=== PATIENT | female | born 1960 | race Two or more races ===

== ENCOUNTER 2020-05-03 18:31 | Outpatient (REF) | payer OTHER, SELFPAY | END 2020-05-03 18:32 | disposition home or self-care (01) | LOC: HO.LNP 18:31 | PROVIDERS: Visit Provider Family Medicine | DX: Z20.828 Contact with and (suspected) exposure to other viral communicable diseases (principal) | CPT/HCPCS: 87635 ==

== ENCOUNTER 2025-02-06 09:08 | Outpatient (AMB) | payer MEDICARE, SELFPAY ==
--- NOTE | 2025-02-06 09:12 | A.OFFVIS_ITS ---
Vital Signs 02/06/25 09:16 Height 5 ft 1.54 in Weight 114 lb 10.246 oz BMI 21.3 BP 132/70 Blood Pressure Location Rt brachial Position Sitting Pulse 83 Pulse Source Pulse Oximeter Pulse Oximetry (%) 97 Oxygen Delivery Method Room Air Intake Visit Reasons: Osteoporosis Intake Note: New patient present today for Osteoporosis. Patient reports she believes she has had 3 total Prolia injections, last injection was approx in September 2024. Patient report she is taking 600 mg of Mushroom Supplement. Energy Professional Required: No Accompanied by: Self / Same As Patient Allergies Iodinated Contrast Media Allergy (Severe, Verified 02/06/25 09:16) Patient had bad rash Medication List - Last Reviewed 02/06/25 by SAUMYA Mitchell calcium carb, citrate-vit D3 600 mg-12.5 mcg (500 unit) ER (Citracal-D3 Slow Release) tabs PO cinnamon bark (Cinnamon) 1,000 mg PO DAILY multivitamin 1 tab PO DAILY HPI Comments Details: The patient is a 64-year-old female presenting with osteoporosis management. She was first diagnosed with osteoporosis eight years ago by her NUTRITIONAL SERVICES DIRECTOR, Dr. Price, and has not seen a specialist for this condition until now. Initially, she was treated with alendronate for four years, starting around 2011, and later transitioned to Prolia, receiving five doses from 2020 to 2024. The patient reports no side effects from Prolia and has not experienced any fractures or jaw problems. She has a family history of osteoporosis and hip fracture, as her father had similar issues. The patient consumes a diet rich in calcium, including salmon, milk, broccoli, and cheese, and takes calcium supplements totaling 2400 mg daily. She was advised to reduce her calcium intake to 1200 mg daily to prevent potential hypercalcemia and associated risks. The patient engages in weight-bearing exercises, performing strengthening exercises for 20 minutes daily, six times a week. She does not use proton pump inhibitors, blood thinners, seizure medications, or steroids. First diagnosed in 8 yrs ago . Never saw endo or rheum Received treatment in the past with alendronate , from 2016 to 2020 .and Prolia from 2020 to 2024 last dose in 09/2024 Tolerated treatment well without complication. No history of pathologic fracture or ONJ. Has several servings of dietary calcium per day in the form of salmon , milk, broccoli . Takes Calcium supplement 2400 mg daily in divided doses. Not Takes IU of Vitamin D daily. Denies ever using PPI, anticoagulant, antiepileptic or glucocorticoid medica tion. Does weight bearing exercise 7 days per week in the form of muscle straining . 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 UTD on dental cleanings and sees dentist every 6 months. No planned upcoming dental work or extractions. Ex tabacco user stopped 1984 - no heavy ETOH abuse DXA dated 10/24/24: T-score of -2.7 in the lumbar spine Labs: [facility] Medical History (Updated 02/06/25 @ 09:26 by Ammon Locke MD) Osteoporosis Surgical History Hx of hysterectomy Hx of tonsillectomy Hx of tooth extraction History of bilateral tubal ligation Hx of appendectomy Family History Mother History of colon cancer Father Osteoporosis Social History Alcohol intake: current Alcohol intake frequency: holidays/special occasions only Patient Tobacco Use Status: Former Tobacco user Physical Exam Vital Signs: Last Vital Signs Pulse 83 02/06/25 09:16 BP 132/70 02/06/25 09:16 Pulse Ox 97 02/06/25 09:16 Oxygen Delivery Method Room Air 02/06/25 09:16 BMI result Body Mass Index 21.3 There are no Cushingoid features. Absence of blue sclera. Absence of kyphosis. Thyroid gland is of nl size and weighs 15 gms. There are no thyroid nodules palpated. Lungs CTA. Heart S1 S2 Reg R/R Abdominal exam benign. Muscle strength 5/5 . Examination of spine reveals absence of tenderness on palpation Assessment & Plan Assessment & Plan (1) Osteoporosis: Code(s): M81.0 - Age-related osteoporosis without current pathological fracture Category: Medical Plan: This is a 64-year-old white female with a history of osteoporosis previously treated with alendronate and now Prolia 5 doses last dose September 2024 with significant increases in DEXA bone density. Secondary workup was negative Plan is to continue calcium, vitamin-D and Prolia injections. Could consider transitioning from Prolia in about 2 years time back to bisphosphonate 1. Osteoporosis The patient has been managing osteoporosis with Prolia, having received five doses from 2020 to 2024. She has not experienced any fractures or jaw problems. The plan includes continuing Prolia with a potential transition to alendronate or Reclast to prevent the rebound effect. A 24-hour urine calcium collection is recommended to assess calcium excretion and adjust supplementation accordingly. The patient had an opportunity to ask questions regarding treatment plan. The patient expressed understanding and agreement with the above treatment plan. Patient was informed and verbally consented to the use of an ambient scribe for clinic note documentation during this visit. Orders: Orders Calcium, 24 Hr Ur Today M81.0 - Age-related osteoporosis without current pathological fracture Creatinine, 24 Hr Group Today M81.0 - Age-related osteoporosis without current pathological fracture Coding Level of Care Code New Pt Level 4 (14294) Diagnoses Osteoporosis M81.0
[2025-02-06 09:16] VITALS: BP 132/70; PULSE 83; O2SAT 97; BMI 21.3
== END 2025-02-06 10:29 | disposition home or self-care (01) ==
LOC: HO.ENCR 09:10
PROVIDERS: PCP Internal Medicine; Visit Provider Internal Medicine Endocrinology, Diabetes & Metabolism
DX: M81.0 Age-related osteoporosis without current pathological fracture (principal)
CPT/HCPCS: 99204

== ENCOUNTER → 2025-02-06 09:08 | Outpatient (BNVA) | payer MEDICARE, SELFPAY | PROVIDERS: PCP Internal Medicine; Visit Provider Internal Medicine Endocrinology, Diabetes & Metabolism | DX: M81.0 Age-related osteoporosis without current pathological fracture (principal); Z79.899 Other long term (current) drug therapy | CPT/HCPCS: 99202 ==

== ENCOUNTER 2025-02-09 15:29 | Outpatient (REF) | payer MEDICARE, SELFPAY ==
[2025-02-09 16:54] LABS: Creatinine, mg/dL 99.61
[2025-02-09 17:23] LABS: Total Volume 24 Hour Urine 825 mL
[2025-02-15 18:18] LABS: Calcium/Creatinine Ratio 283 mg/g creat (30-275)
== END 2025-02-09 15:30 | disposition home or self-care (01) ==
LOC: HO.LNP 15:29
PROVIDERS: Visit Provider Internal Medicine Endocrinology, Diabetes & Metabolism
DX: M81.0 Age-related osteoporosis without current pathological fracture (principal)
CPT/HCPCS: 82340; 82570

== ENCOUNTER 2025-04-03 13:38 | Outpatient (REF) | payer MEDICARE, SELFPAY ==
[2025-04-03 18:08] LABS: Albumin Level 4.4 g/dL (3.5-5.0); Anion Gap 11 (12-20); Blood Urea Nitrogen 17 mg/dL (9-16); Calcium 9.6 mg/dL (8.4-10.2); Carbon Dioxide 27 mmol/L (22-29); Chloride 105 mmol/L (96-108); Estimated Glomerular Filt Rate > 60; Potassium 3.9 mmol/L (3.3-5.1); Sodium 139 mmol/L (135-145)
== END 2025-04-03 13:39 | disposition home or self-care (01) ==
LOC: HO.WFDLDS 13:38
PROVIDERS: Visit Provider Internal Medicine Endocrinology, Diabetes & Metabolism
DX: M81.0 Age-related osteoporosis without current pathological fracture (principal)
CPT/HCPCS: 36415; 80048; 82040

== ENCOUNTER 2025-04-11 09:03 | Outpatient (AMB) | payer MEDICARE, SELFPAY ==
[2025-04-11 09:12] VITALS: BP 96/64; PULSE 63; O2SAT 98; BMI 21.7
--- NOTE | 2025-04-11 09:12 | A.OFFVIS_ITS ---
Vital Signs 04/11/25 09:12 Height 5 ft 1.3 in Weight 116 lb 2.938 oz BMI 21.7 BP 96/64 Blood Pressure Location Rt brachial Position Sitting Pulse 63 Pulse Source Pulse Oximeter Pulse Oximetry (%) 98 Oxygen Delivery Method Room Air Intake Visit Reasons: osteoporosis/Prolia injection Intake Note: Patient present today for Osteoporosis follow up and Prolia injection. 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 She was first diagnosed with osteoporosis eight years ago by her AUTOMATION CONTROL TECHNICIAN, Dr. Price, and has not seen a specialist for this condition until now. Initially, she was treated with alendronate for four years, starting around 2011, and later transitioned to Prolia, receiving five doses from 2020 to 2024. The patient reports no side effects from Prolia and has not experienced any fractures or jaw problems. She has a family history of osteoporosis and hip fracture, as her father had similar issues. The patient consumes a diet rich in calcium, including salmon, milk, broccoli, and cheese, and takes calcium supplements totaling 2400 mg daily. She was advised to reduce her calcium intake to 1200 mg daily to prevent potential hypercalcemia and associated risks. The patient engages in weight-bearing exercises, performing strengthening exercises for 20 minutes daily, six times a week. She does not use proton pump inhibitors, blood thinners, seizure medications, or steroids. First diagnosed in 8 yrs ago . Never saw endo or rheum Received treatment in the past with alendronate , from 2016 to 2020 .and Prolia from 2020 to 2024 last dose in 09/2024 Tolerated treatment well without complication. No history of pathologic fracture or ONJ. Has several servings of dietary calcium per day in the form of salmon , milk, broccoli . Takes Calcium supplement 2400 mg daily in divided doses. Not Takes IU of Vitamin D daily. Denies ever using PPI, anticoagulant, antiepileptic or glucocorticoid medication. Does weight bearing exercise 7 days per week in the form of muscle straining . 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 UTD on dental cleanings and sees dentist every 6 months. No planned upcoming dental work or extractions. Ex tabacco user stopped 1984 - no heavy ETOH abuse DXA dated 10/24/24: T-score of -2.7 in the lumbar spine Labs:Receiving Prolia for 3 yrs [facility] Medical History (Updated 02/06/25 @ 09:26 by Ammon Locke MD) Osteoporosis Surgical History Hx of hysterectomy Hx of tonsillectomy Hx of tooth extraction History of bilateral tubal ligation Hx of appendectomy Family History Mother History of colon cancer Father Osteoporosis Social History Alcohol intake: current Alcohol intake frequency: holidays/special occasions only Patient Tobacco Use Status: Former Tobacco user Physical Exam Vital Signs: Last Vital Signs Pulse 63 04/11/25 09:12 BP 96/64 04/11/25 09:12 Pulse Ox 98 04/11/25 09:12 Oxygen Delivery Method Room Air 04/11/25 09:12 BMI result Body Mass Index 21.7 Office Meds Prolia 60 mg/mL subcutaneous syringe Performing Provider: Ammon Locke MD Performing Location: [facility] [place] [facility] Administered by: Mary Loo RN on 04/11/25 09:29 Dose Route Admin Location Dispensed Lot Number Expiration Date [facility] Supervisor [employer] 60 mg subcut right upper extremity 1 mL [id number] 04/01/27 41672-353 -[id number] [facility] Total Dispensed Waste 1 mL 0 % Comments: Patient tolerated injection well. She denies any adverse reactions with previous injections (that were received at her previous practice). Patient advised MD reviewed labs and they were all within range for prolia injection. Assessment & Plan Assessment & Plan (1) Osteoporosis: Code(s): M81.0 - Age-related osteoporosis without current pathological fracture Category: Medical Plan: This is a 64-year-old white female with a history of osteoporosis previously treated with alendronate and now Prolia 5 doses last dose September 2024 with significant increases in DEXA bone density. Secondary workup was negative Plan is to continue calcium, vitamin-D . Received a Prolia injection today. We will transition in 6 months back to alendronate 70 mg Q weekly. We will check urine NTX in 8 months and the patient returned 9 months Orders: Orders AMB Denosumab Injection Practice Supplied Today M81.0 - Age-related osteoporosis without current pathological fracture Collagen Crosslinks NTX 8 Months M81.0 - Age-related osteoporosis without current pathological fracture Medications: New alendronate 70 mg PO QWEEK 5 tabs 4RF Coding Level of Care Code Est Pt Level 3 (03944) Diagnoses Osteoporosis M81.0
== END 2025-04-11 09:40 | disposition home or self-care (01) ==
LOC: HO.ENCR 09:04
PROVIDERS: PCP Internal Medicine; Visit Provider Internal Medicine Endocrinology, Diabetes & Metabolism
DX: M81.0 Age-related osteoporosis without current pathological fracture (principal)
CPT/HCPCS: 99213

== ENCOUNTER → 2025-04-11 09:03 | Outpatient (BNVA) | payer MEDICARE, SELFPAY | PROVIDERS: PCP Internal Medicine; Visit Provider Internal Medicine Endocrinology, Diabetes & Metabolism | DX: M81.0 Age-related osteoporosis without current pathological fracture (principal) | CPT/HCPCS: 96372; 99212; J0897 ==